=== PATIENT | female | born 1970 | race Two or more races ===

== ENCOUNTER 2018-06-01 23:51 | Emergency (ER) | payer OTHER ==
[~2018-06-01] VITALS: Ht 165.1 cm; Wt 85.3 kg
[2018-06-01 23:57] VITALS: Ht 165.1 cm; Wt 85.3 kg
[2018-06-02 00:38] VITALS: BP 149/89
== END 2018-06-02 00:38 | disposition home or self-care (01) ==
LOC: ED 23:51
DX: L23.2 Allergic contact dermatitis due to cosmetics (principal); E78.00 Pure hypercholesterolemia, unspecified; E05.90 Thyrotoxicosis, unspecified without thyrotoxic crisis or storm
CPT/HCPCS: J7512; Q0163